=== PATIENT | male | born 1975 | race Caucasian/White ===

== ENCOUNTER 2018-04-30 09:50 | Outpatient (CLI) | payer OTHER, SELFPAY ==
--- NOTE | 2018-04-30 06:00 | DI.RAD_ITS ---
SYMPTOM/DIAGNOSIS: LUMBAR RADICULOPATHY C-ARM FLUOROSCOPY LUMBAR SPINE: Fluoroscopy Time: 22.8seconds/6.30mGy Fluoroscopy was provided for guidance with lumbar spine [facility] injection. Please see procedure note for details.
[2018-04-30 10:00] VITALS: BP 122/75; PULSE 68; RESP 18; TEMP 36.7; O2SAT 96
[2018-04-30] MEDS: Omnipaque 240 MG/ML 50 ML BTL IJ (10:42)
[2018-04-30 10:43] VITALS: BP 123/75; PULSE 66; RESP 16; O2SAT 96
[2018-04-30] MEDS: Dexamethasone Sod. Phos./Pres-Free 10 MG/ML VIAL IJ (10:43)
--- NOTE | 2018-04-30 10:44 | PDOC.PAIN ---
Pain Clinic Procedure Note Current Active Problems Problem Status Onset Lumbar radicular syndrome Acute LUMBAR / SACRAL TRANSFORAMINAL INJECTION DERRICK GUAMAN has been [facility] for a transforaminal nerve root block and steroid injection. COMMENTS: I reviewed his recent evaluation with Ms. Johansen from 04/17/18 and his 03/11/18 lumbar spine MRI. He does have a previous L5-S1 fusion. His pre-procedure pain level to the right leg was 3/10. DX: Lumbosacral radiculopathy Patient was interviewed and the medical record reviewed. There were no medical, pharmacologic, radiographic or other structural contraindications to attempting fluoroscopically guided transforaminal nerve root block and epidural steroid injection. Risks and expected side effects as well as potential benefit of the procedure were reviewed and voiced concerns addressed. The printed consent form was signed and witnessed. Standard time-out procedure was performed. Patient was placed in the prone position on the fluoroscopy table and automated blood pressure cuff and pulse oximeter applied. Fluoroscopy was utilized to identify the right neural foramen between L4 and L5. A skin milton was made for the needle insertion site. A Chlorhexadine prep was carried out, and sterile drapes were applied. Local anesthesia was achieved in the skin and subcutaneous tissues. A 22 gauge curved tip spinal needle was then inserted, advanced with fluoroscopic guidance into the neural foramen, confirmed on the lateral view. After negative aspiration, 2 ml of Omnipaque 240 was injected confirming position in A/P and lateral views. This showed a good spread of dye transforaminally into the epidural space. There was no vascular update with contrast injection under continuous fluoroscopy and digital substraction. 10 mg of Dexamethasone was injected, followed by 0.5 ml of 1% Xylocaine flush for the nerve root block, as well. There was no unusual discomfort expressed.The needle was withdrawn. The patient tolerated the procedure well. A Band-Aid was applied. Vital signs were stable throughout the procedure and were as recorded in nursing records. If given, dosages of intravenous drugs for anxiolysis and analgesia were documented in nursing records. Follow up plans and appointments were discussed. Post procedure instruction was given as documented in nursing records and patient was discharged in the care of an identified bottom hoop driver. COMMENTS: If this procedure is found to be helpful, it can be completed up to 3-4 times per 12 months. His post-procedure pain level to the right leg was 0/10. CC: Alba Boland
--- NOTE | 2018-04-30 10:48 | PDOC.PAIN_ITS ---
Pain Clinic Procedure Note Current Active Problems Problem Status Onset Lumbar radicular syndrome Acute LUMBAR / SACRAL TRANSFORAMINAL INJECTION DERRICK GUAMAN has been referred to the [facility] for a transforaminal nerve root block and steroid injection. COMMENTS: I reviewed his recent evaluation with Ms. Johansen from 04/17/18 and his 03/11/18 lumbar spine MRI. He does have a previous L5-S1 fusion. His pre- procedure pain level to the right leg was 3/10. DX: Lumbosacral radiculopathy Patient was interviewed and the medical record reviewed. There were no medical , pharmacologic, radiographic or other structural contraindications to attempting fluoroscopically guided transforaminal nerve root block and epidural steroid injection. Risks and expected side effects as well as potential benefit of the procedure were reviewed and voiced concerns addressed. The printed consent form was signed and witnessed. Standard time-out procedure was performed. Patient was placed in the prone position on the fluoroscopy table and automated blood pressure cuff and pulse oximeter applied. Fluoroscopy was utilized to identify the right neural foramen between L4 and L5. A skin milton was made for the needle insertion site. A Chlorhexadine prep was carried out, and sterile drapes were applied. Local anesthesia was achieved in the skin and subcutaneous tissues. A 22 gauge curved tip spinal needle was then inserted, advanced with fluoroscopic guidance into the neural foramen, confirmed on the lateral view. After negative aspiration, 2 ml of Omnipaque 240 was injected confirming position in A/P and lateral views. This showed a good spread of dye transforaminally into the epidural space. There was no vascular update with contrast injection under continuous fluoroscopy and digital substraction. 10 mg of Dexamethasone was injected, followed by 0.5 ml of 1% Xylocaine flush for the nerve root block, as well. There was no unusual discomfort expressed.The needle was withdrawn. The patient tolerated the procedure well. A Band-Aid was applied. Vital signs were stable throughout the procedure and were as recorded in nursing records. If given, dosages of intravenous drugs for anxiolysis and analgesia were documented in nursing records. Follow up plans and appointments were discussed. Post procedure instruction was given as documented in nursing records and patient was discharged in the care of an identified cdl flatbed truck driver. COMMENTS: If this procedure is found to be helpful, it can be completed up to 3- 4 times per 12 months. His post-procedure pain level to the right leg was 0/10. CC: Alba Boland
== END 2018-04-30 10:10 ==
PROVIDERS: PCP Internal Medicine; Visit Provider Preventive Medicine Occupational Medicine
DX: M54.16 Radiculopathy, lumbar region (principal)
CPT/HCPCS: 64483; 72100; Q9967